=== PATIENT | female | born 1990 | race Two or more races ===

== ENCOUNTER 2023-06-10 14:24 | Emergency (ER) | payer OTHER, SELFPAY ==
--- NOTE | 2023-06-10 15:07 | ED.GENADULT ---
HPI - General Adult General Chief complaint: Back Pain/Injury Stated complaint: l arm and back inj at work Time Seen by Provider: 06/10/23 17:41 Source: patient and lpn rn hospice Mode of arrival: ambulatory Limitations: language barrier History of Present Illness HPI narrative: Patient is a 32 year old assigned female at with no reported medical history presenting to the emergency department today with left sided chest wall and shoulder pain. Patient states that she lifted a heavy box in an awkward way with her left arm and has been having pain in her left chest and shoulder ever since. Patient denies any dizziness, lightheadedness, abdominal pain, nausea, vomiting, fever, chills, blurry vision, double vision, loss of vision, chest pain, difficulty breathing, shortness of breath, back pain, night sweats, pain with urination, increased urinary frequency, increased urinary urgency, blood in her urine or stool, syncope or a near syncopal episode, bowel incontinence, bladder incontinence, bowel retention, bladder retention, or any other complaints at this time. Onset (ago): hour(s) Location: chest, left and upper extremity Severity: mild Severity scale (1-10): 3 Quality: aching Relieving factors: none Exacerbating factors: movement Associated symptoms: denies other symptoms Treatments prior to arrival: none Related Data Previous Rx's Medication Instructions Recorded cyclobenzaprine 5 mg tablet 5 mg PO TID PRN muscle spasm 7 06/10/23 days #21 tabs naproxen 500 mg tablet 500 mg PO BID 7 days #14 tabs 06/10/23 Allergies Allergy/AdvReac Type Severity Reaction Status Date / Time No Known Allergies Allergy Verified 06/10/23 15:08 Review of Systems Constitutional: Constitutional: Reports no additional constitutional complaints, Denies chills, Denies fever(s) and Denies night sweats Eyes: Eyes: Reports no additional eye complaints, Denies blurry vision, Denies change in vision, Denies diplopia, Denies eye discharge, Denies loss of vision and Denies eye pain ENT: Denies dizziness Cardiovascular: Cardiovascular: Reports no additional cardiovascular complaints, Denies chest pain, Denies lightheadedness, Denies Loss of Consciousness and Denies dyspnea Respiratory: Respiratory: Reports no additional respiratory complaints and Denies dyspnea Gastrointestinal: Gastrointestinal: Reports no additional gastrointestinal complaints, Denies abdominal pain, Denies melena, Denies hematochezia, Denies change in bowel habits and Denies change in stool character Genitourinary: Genitourinary: Denies hematuria, Denies urinary frequency, Denies dysuria, Denies urinary incontinence, Denies urinary hesitancy and Denies urinary urgency Musculoskeletal: Musculoskeletal: Reports no additional musculoskeletal complaints, Denies numbness and Denies tingling Comments: left chest wall pain and shoulder pain Neurologic: Denies dizziness, Denies loss of vision, Denies numbness and Denies tingling Psychiatric: Psychiatric: Reports no additional psychiatric complaints Endocrine: Endocrine: Reports no additional endocrine complaints Hematologic/Lymphatic: Hematologic/Lymphatic: Reports no additional hematologic/lymphatic complaints Allergic/Immunologic: Allergic/Immunologic: Reports no additional allergic/immunologic complaints PMFSH Past Medical History Attestation statement: The following information was validated with the patient. Source: old records reviewed and nursing notes reviewed Onset Date is defined in the Problem List Problems that require an onset date and time if occurred within 24 hrs of arrival to the ED Aortic Dissection and Rupture; Neurologic impairment; Cardiopulmonary Arrest; Endotracheal Intubation; Insertion or Replacement of Mechanical Circulatory Assist Device Physical Exam ED Vital Signs: Vital Signs - 24 hr 06/10/23 15:08 Temperature 97.3 F Pulse Rate 78 Respiratory Rate 18 Blood Pressure 123/92 H Pulse Oximetry 100 Oxygen Delivery Method Room Air BMI result Body Mass Index 35.1 Const General: cooperative, no acute distress, alert and awake Nutritional Appearance: well nourished Orientation/consciousness: patient oriented x3 Limitations: no limitations [facility] Head: Yes normal to inspection and Yes atraumatic Ears: hearing grossly normal bilaterally and external ears normal General nose exam: Normal external nose present, no nasal discharge noted and no epistaxis Face and sinus: Yes normal facial exam, No abrasion and No laceration Mouth: Normal oral and palatal mucosa present, no drooling and no muffled voice Eyes General: appearance normal, both eyes and all related structures Periorbital: periorbital findings normal Eyelids: Yes eyelids normal Conjunctivae: conjunctivae normal Pupils: Equal, round and reactive pupils present EOM: EOMs intact bilaterally Neck Neck: Yes normal visual inspection, Yes full ROM and Yes no lymphadenopathy Chest Chest palpation & inspection: normal inspection of the chest Resp Effort & Inspection: normal respiratory effort and able to speak in complete sentences GI Inspection: Yes normal to inspection Neuro General: patient oriented x3 and moves all extremities Cranial nerves: Yes Equal, round and reactive pupils present Cognition (Neuro): normal cognition Motor exam (neuro): 5/5 motor strength present throughout Sensory Exam: Normal double simultaneous stimulation for sensation Coordination: [id number] test normal Extrem Other: pain of the left chest with movement of the left shoulder General: Yes capillary refill normal Psych Appearance: grossly normal Mental Status: mental status grossly normal Affect: normal affect Attitude: cooperative Thought process: Normal thought process present Thought content: Normal thought content present Insight: Good insight present (Psych) Course Course Course Narrative: This is a rapid medical exam. Deferred additional HPI, ROS, PE to primary provider. 32 yo female with no known medical history, right hand dominant here with work injury. Patient reports she was lifting a heavy box and now has pain in her left shoulder/upper left back WIll obtain x-rays VSS Medical Decision Making Medical Decision Making MDM Narrative: Patient is a 32 year old assigned female at with no reported medical history presenting to the emergency department today with left chest wall and shoulder pain. Patient's physical exam showed left chest wall pain with left shoulder movement. This is concerning for a left pectoral injury. Patient's left shoulder x-ray showed no acute process. I explained my physical exam findings as well as all test results to the patient. I answered all questions asked by the patient. I stressed the importance of the patient taking her medication as prescribed. I stressed the importance of the patient following up with her primary care provider and an orthopedic provider. I stressed the importance of the patient returning to the emergency department immediately if her symptoms were to worsen or if she were to develop any dizziness, shortness of breath, difficulty breathing, chest pain, blurry vision, loss of vision, nausea, vomiting, abdominal pain, fever, chills, back pain, or any other complaints. Patient verbalized agreement and understanding with this treatment plan and discharge. Differential Diagnosis Differential Diagnoses: The differential diagnosis associated with the presentation includes Left pectoral injury Left shoulder injury Lifting injury Admission/Observation Consideration of admission/observation: Escalation of care including admission/observation considered Patient would have been admitted to the hospital had her work up had any findings where hospital admission was appropriate and her clinical presentation warranted hospital admission. Independent Interpretation I performed an independent interpretation of an: Plain X-Ray Interpretation: My interpretation is in agreement with the radiologist's impression of this imaging study. EXAMINATION: XR SHOULDER, LEFT CLINICAL INFORMATION: Unable to abduct left shoulder COMPARISON: None available. TECHNIQUE: AP external rotation, Grashey, scapular Y, and axillary views of the left shoulder. FINDINGS: The bones and soft tissues are normal. No fracture. Glenohumeral and acromioclavicular alignment is anatomic with normal joint space. No abnormal soft tissue calcifications. XR/XR shoulder LT min 2V IMPRESSION: Unremarkable left shoulder. Dictated By: Naun Gonsalves MD Signed By: Electronically signed by Naun Gonsalves MD 06/10/23 6493 Radiology Impression Discussion of test interpretation with radiology: I have reviewed the radiologist's reading. Prescription Management I considered prescription management with: Pain Medication (patient prescribed pain medication) Discharge Plan Discharge Clinical Impression: Strain of left pectoralis muscle Patient Disposition: Home, Self-Care Instructions: Muscle Strain (DC), Chest Wall Pain (ED) Additional Instructions: Follow up with your primary care provider and an orthopedic provider. Return to the emergency department immediately if your symptoms worsen or if you develop any dizziness, shortness of breath, difficulty breathing, chest pain, blurry vision, loss of vision, nausea, vomiting, abdominal pain, fever, chills, back pain, or any other complaints. Breonna un seguimiento con cantrell proveedor de atenci?n primaria y un proveedor ortop?dico. Regrese al departamento de emergencias inmediatamente si hai s?ntomas empeoran o si presenta mareos, dificultad para respirar, dificultad para respirar, dolor en el pecho, visi?n borrosa, p?rdida de la visi?n, n?useas, v?mitos, dolor abdominal, fiebre, escalofr?os, dolor de espalda o cualquier otras quejas. Prescriptions: New naproxen 500 mg tablet 500 mg PO BID 7 Days Qty: 14 0RF cyclobenzaprine 5 mg tablet 5 mg PO TID PRN (Reason: muscle spasm) 7 Days Qty: 21 0RF Referrals: [facility] [Provider Group] (Call to establish and follow up with a primary care provider. If you already have a primary care provider, please follow up with them. Llame para establecer y realizar un seguimiento con un proveedor de atenci?n primaria. Si ya tiene un proveedor de atenci?n primaria, breonna un seguimiento con ?l.) [facility] [place] Group] (Call to establish and follow up with a primary care provider. If you already have a primary care provider, please follow up with them. Llame para establecer y realizar un seguimiento con un proveedor de atenci?n primaria. Si ya tiene un proveedor de atenci?n primaria, breonna un seguimiento con ?l.) [facility] [place] [facility] [Provider Group] (Call to establish and follow up with a primary care provider. If you already have a primary care provider, please follow up with them. Llame para establecer y realizar un seguimiento con un proveedor de atenci?n primaria. Si ya tiene un proveedor de atenci?n primaria, breonna un seguimiento con ?l.) [facility] [place]Provider Group] (Call to establish and follow up with an orthopedic provider. Llame para establecer y realizar un seguimiento con un proveedor ortop?dico.) Stand Alone Forms: Work/School Release Print Language: Iraqi
[2023-06-10 15:08] VITALS: BP 123/92; PULSE 78; RESP 18; TEMP 36.3; O2SAT 100; BMI 35.1
[2023-06-10 17:54] VITALS: BP 118/71; PULSE 71; RESP 20; TEMP 36.6; O2SAT 97
== END 2023-06-10 18:28 | disposition home or self-care (01) ==
PROVIDERS: Emergency Provider Emergency Medicine
DX: S46.812A Strain of other muscles, fascia and tendons at shoulder and upper arm level, left arm, initial encounter (principal); X50.0XXA Overexertion from strenuous movement or load, initial encounter; Y93.89 Activity, other specified; Y92.812 Truck as the place of occurrence of the external cause; Y99.0 Civilian activity done for income or pay
CPT/HCPCS: 73030; 96372; 99283; 99284; J1885

== ENCOUNTER 2025-01-15 09:19 | Emergency (ER) | payer OTHER, SELFPAY ==
--- NOTE | 2025-01-15 | ECG_ITS ---
Test Reason : CP/BACK PAIN Blood Pressure : */* mmHG Vent. Rate : 67 BPM Atrial Rate : 67 BPM P-R Int : 114 ms QRS Dur : 80 ms QT Int : 396 ms P-R-T Axes : 1 -3 5 degrees QTcB Int : 418 ms Normal sinus rhythm Minimal voltage criteria for LVH, may be normal variant ( R in aVL ) Borderline ECG No previous ECGs available Referred By: Maegan Cobb Electronically Signed By: Elmer Valenzuela
--- NOTE | ~2025-01-15 | XR_ITS ---
EXAMINATION: XR SHOULDER, RIGHT CLINICAL INFORMATION: R shoulder pain, heavy lifting COMPARISON: None available. TECHNIQUE: AP external rotation, Grashey, scapular Y, and axillary views of the right shoulder. FINDINGS: No acute cortical disruption or malalignment. No lytic or blastic lesions. No calcifications in the soft tissues. XR/XR shoulder RT min 2V IMPRESSION: No acute fracture or dislocation. Negative exam. Electronically signed by: Vipin Olson MD 01/15/2025 10:59 AM EDT
[2025-01-15 09:39] VITALS: BP 149/81; PULSE 89; RESP 16; TEMP 36.6; O2SAT 99; BMI 42.4
--- NOTE | 2025-01-15 09:45 | MHC.EDTECH ---
this tech went to obtain EKG and labs from pt, pt observed to be pacing and in tears due to pain, requesting pain meds and refusing ekg at this time, NAYA Guerin aware.
--- NOTE | 2025-01-15 10:11 | ED_ITS ---
HPI - Extremity Problem General Chief complaint: Extremity Injury, Upper Stated complaint: R shoulder/ back pain, Hurt @ work 2 days ago 730p Time Seen by Provider: 01/15/25 09:35 Source: patient and RN notes reviewed Mode of arrival: ambulatory Limitations: no limitations History of Present Illness ED Provider: Jordyn Issa PA-C HPI Narrative: 34-year-old female without significant medical history presents to the ED due to who days of right shoulder pain. 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 Patient states Monday evening when she got home from work she noticed right shoulder pain that starts in the anterior shoulder and radiates to the back of her shoulder, it is associated with intermittent nausea when the pain is at its worst. Patient states movement and lifting makes the pain worse. Patient reports yesterday morning when she woke up she had an increased pain of the right shoulder. She denies any fall, trauma, injury. Patient states she has not taken any pisr-jgd-wycpndy medication for pain control. Denies chest pain, shortness of breath, abdominal pain, vomiting Related Data Previous Rx's ?Medication ?Instructions ?Recorded cyclobenzaprine 5 mg tablet 5 mg PO TID PRN muscle spa sm 7 06/10/23 days #21 tabs naproxen 500 mg tablet 500 mg PO BID 7 days #14 tab s 06/10/23 cyclobenzaprine 5 mg tablet 5 mg PO TID PRN muscle spa sm 5 01/15/25 days #15 tabs ketorolac 10 mg tablet 10 mg PO Q8H PRN pain 3 days #9 01/15/25 tabs lidocaine 4 % topical patch 1 patch topical DAILY PRN pain #30 01/15/25 (AsperFlex (lidocaine)) ea prednisone 20 mg tablet 20 mg PO BID #10 tabs Allergies Allergy/AdvReac Type Severity Reaction Status Date / Time No Known Allergies Allergy Verified 01/15/25 09:40 Review of Systems 2 Review of Systems: CONST: Negative for fever, body aches and chills. HENT: Negative for neck pain/stiffness, headache, congestion, sore throat, swelling. EYES: Negative for discharge/pain or vision changes. RESP: Negative for cough/hemoptysis and shortness of breath. CV: Negative chest pain, difficulty breathing, palpitations. ABD: Negative pain, nausea, vomiting. : Negative increase frequency, dysuria, blood in urine or stool. MUSC: Negative for muscle aches, edema. POS R shoulder pain, radiating to posterior shoulder SKIN: Negative rash, lesions/sores. NEURO: Negative headache, dizziness, weakness. Yes all other systems are reviewed and are negative [facility] Past Medical History Attestation statement: The following information was validated with the patient. Source: old records reviewed and nursing notes reviewed Social History Social History Advance Directives: No Advance Directives Information Provided: Yes Do you have a plan to hurt others: No Plan Physical Exam 2 Vital Signs: Vital Signs: Last Vital Signs Temp 97.9 F 01/15/25 09:39 Pulse 89 01/15/25 09:39 Resp 16 01/15/25 09:39 BP 149/81 H 01/15/25 09:39 Pulse Ox 99 01/15/25 09:39 O2 Del Method Room Air 01/15/25 09:39 BMI result Body Mass Index 42.4 GENERAL APPEARANCE: ?AxOx4, generally well-appearing, no acute distress. HEENT: ?NC, AT. MMM. EOMI, clear conjunctiva, oropharynx clear. NECK: ?Supple without lymphadenopathy.? No stiffness or restricted ROM. HEART:? Normal rate and regular rhythm, normal S1/S2, no m/r/g LUNGS:? CTAB, moving air well. No crackles or wheezes are heard. ABDOMEN: ?Soft, nontender, nondistended with good bowel sounds heard. BACK: No CVAT, no obvious deformity. TTP of right side thoracic paraspinal muscles, no midline spinal tenderness, no bony step-offs, no overlying skin changes EXTREMITIES: ?Without cyanosis, clubbing or edema. Normal visual inspection of right shoulder, no overlying skin changes, TTP of anterior shoulder, TTP of posterior scapula, SILT, reduced ROM in flexion and extension due to pain, patient holding arm in adduction close to body due to pain, radial pulses 2+ bilaterally, appropriate capillary refill time. NEUROLOGICAL: ?Grossly nonfocal. Alert and oriented, moving all 4 extremities. Observed to ambulate with normal gait. Skin: ?Warm and dry without any rash. Medications Administered Discontinued Medications Generic Name Dose Route Start Last Admin Trade Name Freq PRN Reason Stop Dose Admin Acetaminophen 975 mg 01/15/25 10:11 01/15/25 10:48 Acetaminophen 325 Mg Tablet PO 01/15/25 10:12 975 mg ONCE ONE Administration Cyclobenzaprine HCl 5 mg 01/15/25 10:11 01/15/25 10:48 Cyclobenzaprine Hcl 5 Mg Tablet PO 01/15/25 10:12 5 mg ONCE ONE Administration Ketorolac Tromethamine 15 mg 01/15/25 10:11 01/15/25 10:48 Ketorolac Tromethamine 15 Mg/Ml Vial IM 01/15/25 10:12 15 mg ONCE ONE Administration Prednisone 40 mg 01/15/25 10:11 01/15/25 10:48 Prednisone 20 Mg Tablet PO 01/15/25 10:12 40 mg ONCE ONE Administration Medical Decision Making Medical Decision Making MDM Narrative: 34-year-old female without significant medical history presents to the ED due to who days of right shoulder pain. 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 Patient states Monday evening when she got home from work she noticed right shoulder pain that starts in the anterior shoulder and radiates to the back of her shoulder, it is associated with intermittent nausea when the pain is at its worst. Patient states movement and lifting makes the pain worse. Patient reports yesterday morning when she woke up she had an increased pain of the right shoulder. She denies any fall, trauma, injury. Patient states she has not taken any obla-lmf-rhcrjgg medication for pain control. VS-BP of 149/81, pulse rate 89 beats per minute, respiratory rate of 16, afebrile with oral temp of 97.9, O2 saturation 99 percent on room air. On physical exam Normal visual inspection of right shoulder, no overlying skin changes, TTP of anterior shoulder, TTP of posterior scapula, SILT, reduced ROM in flexion and extension due to pain, patient holding arm in adduction close to body due to pain, radial pulses 2+ bilaterally, appropriate capillary refill time. TTP of right side thoracic paraspinal muscles, no midline spinal tenderness, no bony step-offs, no overlying skin changes. Abdomen soft, nontender, nondistended, no rigidity, negative Jewell's sign, no rebound tenderness EKG reveals normal sinus rhythm, no ST-elevation/depression, T-wave abnormality indicative of ischemia, initial troponin undetectable at <2.7, patient without chest pain- ACS less likely Labs with mild leukocytosis of 12.5, H and H stable, no evidence of electrolyte abnormality, patient without abdominal pain, no suprapubic tenderness, no urinary symptoms, patient without cough, no chest pain, afebrile- I believe the mild leukocytosis could be caused by increased pain. no significant increase in AST/ALT, total bilirubin, Jewell's sign negative on physical exam, shoulder pain not affected by meals- less likely billiary pathology Lipase WNL, no epigastric tenderness on physical exam- pancreatitis less likely R shoulder XR negative for dislocation/fracture Course 11:40- patient states pain has improved after being medicated with 40 mg prednisone, 15mg IM Toradol, 5mg cyclobenzaprine, 975 milligrams p.o. Tylenol. At this time I believe patient experiencing strain, possible rotator cuff injury/inflammation. We will discharge patient with 5 day course of 40 mg prednisone, 5 day course of 5 mg cyclobenzaprine, 3 days of 15 mg Toradol for shoulder strain. I will refer to orthopedics for further evaluation of rotator cuff pathology. Patient is in agreement with the plan Differential Diagnosis Differential Diagnoses: The differential diagnosis associated with the presentation includes ACS Shoulder fracture Shoulder dislocation Biliary pathology pancreatitis Rotator cuff pathology Admission/Observation Consideration of admission/observation: Escalation of care including admission/observation considered Lab Data MDM Lab Attestation statement: I reviewed the patient's lab results. 01/15/25 10:45 01/15/25 10:45 Labs: Lab Results 01/15/25 Range/Units 10:45 WBC 12.5 H (4.8-10.8) X10*3/uL RBC 4.77 (4.20-5.50) X10*6/uL Hgb 14.6 (12.0-16.0) g/dl Hct 42.5 (37.0-47.0) % MCV 89.1 (80.0-98.0) fL MCH 30.6 (27.0-33.0) pg MCHC 34.4 (31.0-35.0) g/dl RDW 13.0 (11.0-16.0) % Plt Count 314 (160-400) X10*3/uL MPV 9.9 (9.4-12.3) fL Immature Gran % (Auto) 0.3 (0.0-0.4) % Neut % (Auto) 70.1 (45-73) % Lymph % (Auto) 24.1 (20-40) % Rock % (Auto) 4.2 (2-11) % Eos % (Auto) 0.8 (0-4) % Baso % (Auto) 0.5 (0-2) % Lymph # (Auto) 3.0 (1.2-4.9) X10*3/uL Rock # (Auto) 0.5 (0.1-1.2) X10*3/uL Eos # (Auto) 0.1 (0.0-0.4) X10*3/uL Baso # (Auto) 0.1 (0.0-0.2) X10*3/uL Abs Immat Gran (auto) 0.04 H (0.00-0.03) X10*3/uL Absolute Neuts (auto) 8.8 H (2.0-8.3) x10*3/uL Absolute Nucleated RBC 0.000 (0.0-0.012) X10*3/uL Nucleated RBC % (auto) 0.0 (0.0-0.2) /100WBC Sodium 139 (135-145) mmol/L Potassium 4.3 (3.3-5.1) mmol/L Chloride 109 H (96-108) mmol/L Carbon Dioxide 24 (22-29) mmol/L Anion Gap 10 L (12-20) BUN 10 (9-16) mg/dL Creatinine 0.58 (0.5-1.4) mg/dL Estim Creat Clear Calc 136.8 Estimated GFR > 60 Random Glucose 98 (60-115) mg/dL Calcium 8.8 (8.4-10.2) mg/dL Magnesium 2.0 (1.6-2.6) mg/dL Total Bilirubin 0.3 (0.0-1.0) mg/dL AST 28 (5-31) U/L ALT 33 H (0-31) U/L Alkaline Phosphatase 102 (39-117) U/L Troponin I High Sens < 2.7 (<3.5-17.0) ng/L Total Protein 7.5 (6.5-8.0) g/dL Albumin 4.5 (3.5-5.0) g/dL Independent Interpretation I performed an independent interpretation of an: EKG Interpretation: I independently interpreted the EKG which shows normal sinus rhythm, no ST- elevation/depression, T-wave abnormality Vent. Rate : 67 BPM Atrial Rate : 67 BPM P-R Int : 114 ms QRS Dur : 80 ms QT Int : 396 ms P-R-T Axes : 1 -3 5 degrees QTcB Int : 418 ms Normal sinus rhythm Minimal voltage criteria for LVH, may be normal variant ( R in aVL ) Borderline ECG No previous ECGs available I personally interpreted the right shoulder x-ray which does not reveal any fracture, dislocation, degenerative changes, I agree with the radiologist's interpretation Radiology Impression Discussion of test interpretation with radiology: I have reviewed the radiologist's reading. Radiologist Impression: Right shoulder XR FINDINGS: No acute cortical disruption or malalignment. No lytic or blastic lesions. No calcifications in the soft tissues. XR/XR shoulder RT min 2V IMPRESSION: No acute fracture or dislocation. Negative exam. Electronically signed by: Vipin Olson MD 01/15/2025 10:59 AM EDT RP Dictated By: Vipin Cornelius MD Signed By: <Electronically signed by Vipin Mclean MD in OV> 01/15/25 1059 External Record Review External record reviewed: Inpatient record, Office record and Outpatient record Discharge Plan Discharge Clinical Impression: Muscle strain of right shoulder Patient Disposition: Home, Self-Care Instructions: Muscle Strain (DC), Rotator Cuff Injury (ED), Rotator Cuff Injury Exercises (DC) Additional Instructions: You were evaluated in the ED today due to right shoulder pain. Your labs revealed a mild elevation in your white blood cell count- this is likely due to pain. Your EKG showed normal sinus rhythm without any emergent processes, your initial troponin which is an enzyme the heart gives off under stress or damage was undetectable. The x-ray of your right shoulder was negative for any fracture, dislocation, or degenerative changes. Your physical exam showed some tenderness of the anterior and posterior shoulder and around the region known as the rotator cuff. While in the department you were medicated with 975 mg of Tylenol, 40 mg prednisone, 5 mg of Flexeril, and 15 milligrams of an intramuscular injection of Toradol which had good effect of your pain. You will be prescribed a 5 day course of prednisone which is a steroid for anti inflammation, 5 day course of Flexeril which is a muscle relaxer, lidocaine patches, and 3 days of Toradol which is a strong NSAID to manage inflammation and pain. I placed a referral to the orthopedic doctors for further evaluation of your right shoulder pain. You need to call their office, they will not call you. While taking Toradol, do not take any other NSAID medication, including your naproxen. While using lidocaine patches please do not place any ice, or heat over the patches as this can burn your skin. Please return to the emergency department if you experience fevers over 100.4 degrees, worsening pain of your right shoulder, inability to move your right arm, decreased sensation of your right arm, or any other new/worsening/concerning symptoms Prescriptions: New cyclobenzaprine 5 mg tablet 5 mg PO TID PRN (Reason: muscle spasm) 5 Days Qty: 15 0RF prednisone 20 mg tablet 20 mg PO BID Qty: 10 0RF lidocaine [AsperFlex (lidocaine)] 4 % adhesive patch,medicated 1 patch topical DAILY PRN (Reason: pain) Qty: 30 0RF ketorolac 10 mg tablet 10 mg PO Q8H PRN (Reason: pain) 3 Days Qty: 9 0RF Rx Instructions: maximum total duration of 5 days from all oral, intranasal, or parenteral formulations PT given 15 mg IM toradol for pain management No Action naproxen 500 mg tablet 500 mg PO BID 7 Days Qty: 14 0RF cyclobenzaprine 5 mg tablet 5 mg PO TID PRN (Reason: muscle spasm) 7 Days Qty: 21 0RF Referrals: [facility] [place] Orthopedic Surgeons [Provider Group] Print Language: Romansh
[2025-01-15 11:00] LABS: MANUAL DIFF FLAG NO
[2025-01-15 11:04] LABS: Hematocrit 42.5 % (37.0-47.0); Hemoglobin 14.6 g/dl (12.0-16.0); Imm Gran Abs Auto 0.04 X10*3/uL (0.00-0.03); Imm Gran Pct Auto 0.3 % (0.0-0.4); Lymphocytes Absolute Auto 3.0 X10*3/uL (1.2-4.9); Mean Corpuscular HGB Conc 34.4 g/dl (31.0-35.0); Mean Corpuscular Hemoglobin 30.6 pg (27.0-33.0); Mean Corpuscular Volume 89.1 fL (80.0-98.0); NRBC Abs Auto 0.000 X10*3/uL (0.0-0.012); NRBC Pct Auto 0.0 /100WBC (0.0-0.2); Platelet Count 314 X10*3/uL (160-400); Red Blood Count 4.77 X10*6/uL (4.20-5.50); White Blood Count 12.5 X10*3/uL (4.8-10.8)
[2025-01-15 11:18] LABS: Alanine Aminotransferase 33 U/L (0-31); Albumin Level 4.5 g/dL (3.5-5.0); Alkaline Phosphatase 102 U/L (39-117); Anion Gap 10 (12-20); Aspartate Amino Transferase 28 U/L (5-31); Blood Urea Nitrogen 10 mg/dL (9-16); Calcium 8.8 mg/dL (8.4-10.2); Carbon Dioxide 24 mmol/L (22-29); Chloride 109 mmol/L (96-108); Creatinine Clr Calc Pharmacy 136.8; Estimated Glomerular Filt Rate > 60; Magnesium 2.0 mg/dL (1.6-2.6); Potassium 4.3 mmol/L (3.3-5.1); Sodium 139 mmol/L (135-145); Total Protein 7.5 g/dL (6.5-8.0)
[2025-01-15 11:29] LABS: Troponin-I High Sensitivity < 2.7 ng/L (<3.5-17.0)
--- OUTSIDE RECORDS SUMMARY | 2025-01-15 11:29 | XMS_ITS | Clinical Summary ---
Author Organization [facility] Address [address] [place] [address] Care Team Providers Care Machine Stuffer Automatic Name Role Phone Palmira Goode PA-C Primary Care Provider [phone] Source Comments PLEASE NOTE, if this patient is a minor, it may be UNLAWFUL to discuss sensitive information that is contained in these records (such as FAMILY PLANNING, MENTAL HEALTH or SUBSTANCE ABUSE) with the minor patient's parent or other person without the patient's specific authorization.[facility] Allergies No known active allergies Active Problems Problem Noted Date Diagnosed Date Amenorrhea 07/14/2017 Immunizations Immunization Administration Dates Next Due Flu, Preservative Free 07/14/2017 Family History Medical History Relation Name Comments Diabetes Father Hypertension Father Hypertension Mother Relation Name Status Comments Father Mother Social History Tobacco Use Types Packs/Day Years Used Date Smoking Tobacco: Every Day Cigarettes Smokeless Tobacco: Never Tobacco Cessation:Ready to Q uit: No; Counseling Given: Yes Comments:4 cigarettes Alcohol Use Standard Drinks/Week Comments No 0 (1 standard drink = 0.6 oz pur e alcohol) Social Connections Answer Date Recorded Connectedness 0 02/23/2024 Financial Resource Strain Answer Date R ecorded Financial Resource Strain 0 2023 Stress Answer Date Recorded Stress 0 08/21/2023 Physical Activity Answer Date Recorded Physical Activity 0 08/21/2023 Food Insecurity Answer Date Recorded Food 0 02/29/2024 Transportation Needs Answer Date Record ed Transportation 0 08/21/2023 Housing Stability Answer Date Recorded Housing 0 08/21/2023 Safety and Environment Answer Date Иван rded Safety 0 08/21/2023 Utilities Answer Date Recorded Utilities 0 08/21/2023 Employment Answer Date Recorded Stress 0 02/23/2024 Comments No Sex and Gender Information Value Date Recorded Sex Assigned at Female 07/14/2017 11:28 AM PST Legal Sex Female 9:19 AM PST Gender Identity Female 07/14/2017 11:28 AM PST Sexual Orientation Straight 07/14/2017 11 :28 AM PST Last Filed Vital Signs Vital Sign Reading Time Taken Comments Blood Pressure 120/70 07/14/2017 2:30 PM EST Pulse 80 07/14/2017 2:30 PM EST Temperature 36.8 C (98.3 F) 07/14/2017 2:30 PM EST Respiratory Rate 16 07/14/2017 2:30 PM EST Oxygen Saturation - - Inhaled Oxygen Concentration - - Weight 102.1 kg (225 lb) 07/14/2017 2:30 PM EST Height - - Body Mass Index - - Plan of Treatment Health Maintenance Due Date Last Done Comments Anxiety Screening 1989 HPV Screening 1989 Hepatitis C Screening 1989 Pap + HPV 1989 Tobacco Screening 1989 Relationship Safety Screening/Counseling 2004 Imm-DTaP/Tdap/Td (1 - Tdap) 2008 Imm-Hepatitis B (1 of 3 - 19 + 3-dose series) 2008 Imm-Pneumococcal (1 of 2 - PCV) 2008 Cervical Cancer Screening 2010 Pap Smear 2010 Annual Wellness (Adult): Ind icated (All Coverage) 07/14/2018 07/14/2017 Tobacco Cessation Counseling (#1) 07/14/2018 Hypertension Screening (#1) 07/13/2020 Diabetes Screening 07/26/2020 07/26/2017, 07/26/2017 [id number] ( season) 02/04/202404/08/2 021, 03/18/2021 Alcohol and Drug Screen 06/05/2024 07/14/2017 Depression Annual Screen 06/05/2024 07/14/2017 Imm-Influenza (#1) 2025 03/18/2021, 07/14/2017 HIV Screening Completed 07/26/2017 Cervical Ablation/Cold-Knife Conization Discontinued Cervical Cryotherapy Discontinued Colposcopy Discontinued Endometrial Biopsy Discontinued Excision/Leep Discontinued HPV Genotyping Discontinued Vaginal Pap Discontinued Vulvoscopy Discontinued Procedures Procedure Name Priority Date/Time Associated Diagnosis Comments ANTIBODY HIV-1&HIV-2 SINGLE RESULT Routine 07/26/2017 10:15 AM EST Routine general medical examination at a health care facility COMPREHENSIVE METABOLIC PANEL Routine 07/26/2017 10:15 AM EST Routine general medical examination at a health care facility from Last 3 Months or Most Recently Relevant to Health Maintenance Results * HIV-1 & HIV-2 ANTIBODIES (07/26/2017 10:15 AM EST) Pathologist [facility] [place] HIV 1 AND 2 ANTIBODY SCREEN NEGATIVE NEGATIVE [facility] Comment: This assay is a 4th generation assay allowing for earlier detection of HIV infection by detecting the presence of the HIV-1 p24 antigen as well as the traditional antibodies to HIV type 1 (including group O) and type 2. Use of a 4th generation assay is the current CDC recommendation for HIV screening. Blood specimen (specimen) Blood / Unknown 07/26/2017 10:15 AM EST 07/26/2017 10:31 AM EST Narrative [facility] - 07/26/2017 1:07 PM EST [employer] [address] [place] [address] PT ID [id number] ORD# [id number] Carey Villegas PA-C LAB - [place]OD [place] [address], * (ABNORMAL) COMPRE METAB PANEL (07/26/2017 10:15 AM EST) Pathologist [facility] [place] GLUCOSE 90 70 - 100 mg/dL [facility] Comment:Reference range appl icable to fasting specimens only BUN 17 5 - 25 mg/dL [facility] CREAT 0.57 0.5 - 1.1 mg/dL [facility] GLOMERULAR FILTRATION RATE > 60 [facility] Comment: If patient is -Montserratian, multiply result by 1.21 Chronic Kidney Disease: < 60 ml/min/1.73 square meters Kidney Failure: < 15 ml/min/1.73 square meters SODIUM 139 133 - 145 mmol/L [facility] POTASSIUM 4.5 3.5 - 5.5 mmol/L [facility] CHLORIDE 107 96 - 110 mmol/L [facility] CO2 23 21 - 32 mmol/L [facility] ANION GAP 9 3 - 11 [facility] CALCIUM 8.9 8.5 - 10.5 mg/dL [facility] ALBUMIN 3.7 3.2 - 5.0 G/dL [facility] SGPT 45 10 - 60 U/L [facility] TOTAL PROTEIN 7.4 6.0 - 8.0 G/dL [facility] BILI, TOTAL 0.3 0.0 - 1.4 mg/dL [facility] SGOT 21 10 - 42 U/L [facility] ALK PHOS 125(H) 42 - 121 U/L [facility] Blood specimen (specimen) Blood / Unknown 07/26/2017 10:15 AM EST 07/26/2017 10:31 AM EST Narrative [facility] - 07/26/2017 12:20 PM EST [facility] [employer] [address] [place] [address] PT ID [id number] ORD# [id number] Carey Villegas PA-C LAB - BLOOD DRAW Doreen R esult - Final [facility] [address] [place] [address], from Last 3 Months or Most Recently Relevant to Health Maintenance Insurance [employer] Care Teams Machine Stuffer Automatic Relationship Specialty Start Date End Date Palmira Goode PA-C [address] [place] [address] PCP - General Internal Medicine 02/04/22
--- OUTSIDE RECORDS SUMMARY | 2025-01-15 11:29 | XMS_ITS | Clinical Summary ---
Author Organization [facility] Address [address] [place] [id number] Care Team Providers Care Senior Interaction Designer Name Role Phone Haley Crump MD Primary Care Provider Surgical History Surgery Date Site/Laterality Comments SECTION PROCEDURE: HISTORICAL ; COMMENT: 2 TUBAL LIGATION 2014 PROCEDURE: HISTORICAL TUBAL LIGATION Medical History Medical History Date Comments Secondary amenorrhea 2014 DX:Secondar y amenorrhea; COMMENT: Evaluated in [place] in 02/2015 and was placed on Provera but it didnt work Family History Medical History Relation Name Comments Diabetes Father insulin Hypertension Father Depression Mother Hypertension Mother Breast cancer Neg Hx Ovarian cancer Neg Hx Relation Name Status Comments Father Alive Mother Alive Social History Tobacco Use Types Packs/Day Years Used Date Smoking Tobacco: Every Day Cigarettes Smokeless Tobacco: Never Alcohol Use Standard Drinks/Week Comments Yes 0 (1 standard drink = 0.6 oz pur e alcohol) Comments Unknown Sex and Gender Information Value Date Recorded Sex Assigned at Not on file Legal Sex Female 4:38 AM EST Gender Identity Not on file Sexual Orientation Not on file Obstetrics History Plan of Treatment Health Maintenance Due Date Last Done Comments DTaP,Tdap,and Td Vaccines (1 - Tdap) 2008 Hepatitis B Vaccines (1 of 3 - 19+ 3-dose series) 2008 Pneumococcal Vaccine: Pediat rics (0 to 5 Years) and At-Risk Patients (6 to 49 Years) (1 of 2 - PCV) 2008 Cholesterol Screening (Lipid Panel) 05/08/2022 HIV Screening 05/08/2022 Hepatitis C Screening 05/08/2022 Social Influencers of Health Screening 05/08/2022 Cervical Cancer Screening: P ap Smear 01/28/2024 01/27/2021 COVID-19 Vaccine ( - 2023-2 5 season) 2024 Depression Screening 06/05/2024 Influenza Vaccine (#1) 2025 HIB Vaccines Aged Out No longer eligi ble based on patient's age to complete this topic HPV Vaccines Aged Out No longer eligi ble based on patient's age to complete this topic Hepatitis A Vaccines Aged Out No long er eligible based on patient's age to complete this topic IPV Vaccines Aged Out No longer eligi ble based on patient's age to complete this topic MMR Vaccines Aged Out No longer eligi ble based on patient's age to complete this topic Meningococcal ACWY Vaccine Aged Out N o longer eligible based on patient's age to complete this topic Meningococcal B Vaccine Aged Out No l onger eligible based on patient's age to complete this topic RSV Immunization Patients Un camryn 20 months Aged Out No longer eligible b ased on patient's age to complete this topic Varicella Vaccines Aged Out No longer eligible based on patient's age to complete this topic Procedures Procedure Name Priority Date/Time Associated Diagnosis Comments PAP SMEAR Routine 01/27/2021 from Last 3 Months or Most Recently Relevant to Health Maintenance Results * Pap smear (01/27/2021) 01/27/2021 Narrative HISTORICAL TESTING LAB RESULTING AGENCY - 02/09/2021 7:45 AM EDT [id number] THINPREP PAP, IMAGED: NEGATIVE FOR SQUAMOUS INTRAEPITHELIAL LESION AND MALIGNANCY . ELLIOT SALMON(ASCP) (CASE ELECTRONICALLY SIGNED 02 08 2021) RESULT OF APTIMA HIGH RISK HPV ASSAY: HIGH RISK HPV: NEGATIVE (SEROTYPES 16,18,31,33,35,39,45,51,52,56,58,59,66,68) COMPLETED ON 2021-02-01 ADEQUACY: SATISFACTORY ENDOCERVICAL/TRANSFORMATION ZONE COMPONENT PRESENT. SOURCE: THINPREP PAP HPV ANY DX: REFLEX 16 AND 18, CERVICAL, IMAGED CLINICAL INFORMATION: HPV ANY DIAGNOSIS. HORMONES, PAP HX UNKNOWN, LMP 01/14/21 [Z12.4, Z01.419] Eva Imani [facility] LAB CYTOLOGY ORDERABLES Final Result HISTORICAL TESTING LAB RESULTING AGENCY from Last 3 Months or Most Recently Relevant to Health Maintenance Care Teams Senior Interaction Designer Relationship Specialty Start Date End Date Haley Crump MD [address] [place] [address] Dominic [place] PCP - General Internal Medicine 01/26/21
[2025-01-15 11:38] LABS: Lipase 22 U/L (8-78)
[2025-01-15] MEDS: Lidocaine 4 % Patch ADH..PATCH 1 PATCH TRANSDERMA (12:19)
[2025-01-15 12:20] VITALS: BP 121/75; PULSE 59; RESP 16; TEMP 36.8; O2SAT 99
[2025-01-15 12:28] VITALS: BP 121/75; PULSE 59; RESP 16; TEMP 36.8; O2SAT 99
== END 2025-01-15 12:29 | disposition home or self-care (01) ==
PROVIDERS: Emergency Provider Emergency Medicine
DX: S46.911A Strain of unspecified muscle, fascia and tendon at shoulder and upper arm level, right arm, initial encounter (principal); M25.511 Pain in right shoulder; M54.50 Low back pain, unspecified; R07.89 Other chest pain; X50.0XXA Overexertion from strenuous movement or load, initial encounter; X50.1XXA Overexertion from prolonged static or awkward postures, initial encounter; Y93.9 Activity, unspecified; Y92.9 Unspecified place or not applicable; Y99.0 Civilian activity done for income or pay
CPT/HCPCS: 36415; 73030; 80053; 83690; 83735; 84484; 85025; 93005; 96372; 99284; 99285; J1885

== ENCOUNTER → 2025-01-15 10:09 | Outpatient (BNV) | payer OTHER, SELFPAY | PROVIDERS: Emergency Provider Emergency Medicine; Visit Provider Internal Medicine Cardiovascular Disease | DX: R07.9 Chest pain, unspecified (principal); M54.9 Dorsalgia, unspecified | CPT/HCPCS: 93010 ==

== ENCOUNTER → 2025-01-15 10:16 | Outpatient (BNV) | payer OTHER, SELFPAY | PROVIDERS: Emergency Provider Emergency Medicine; Visit Provider Radiology Diagnostic Radiology | DX: M25.511 Pain in right shoulder (principal) | CPT/HCPCS: 73030 ==

== ENCOUNTER 2025-02-06 12:59 | Outpatient (AMB) | payer OTHER, SELFPAY ==
[2025-02-06 13:01] VITALS: BMI 42.4
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
--- OUTSIDE RECORDS SUMMARY | 2025-02-06 14:15 | XMS_ITS | Clinical Summary ---
Author Organization [facility] Address [address] [place] [id number] Care Team Providers Care Gift Manager Name Role Phone Haley Crump MD Primary Care Provider Surgical History Surgery Date Site/Laterality Comments SECTION PROCEDURE: HISTORICAL ; COMMENT: 2 TUBAL LIGATION 2014 PROCEDURE: HISTORICAL TUBAL LIGATION Medical History Medical History Date Comments Secondary amenorrhea 2014 DX:Secondar y amenorrhea; COMMENT: Evaluated in [place] in 02/2015 and was placed on Provera [...] Cancer Screening: P ap Smear 01/28/2024 01/27/2021 Depression Screening 06/05/2024 COVID-19 Vaccine (1 - 2023-2 5 season) 2025 Influenza Vaccine (#1) 2025 HIB Vaccines Aged [...] RESULTING AGENCY - 02/09/2021 7:45 AM EDT [id number] THINPREP PAP, IMAGED: NEGATIVE FOR SQUAMOUS INTRAEPITHELIAL [...] UNKNOWN, LMP 01/14/21 [Z12.4, Z01.419] Eva Imani [facility] CYTOLOGY ORDERABLES Final Result HISTORICAL TESTING LAB RESULTING AGENCY from Last 3 Months or Most Recently Relevant to Health Maintenance Care Teams Gift Manager Relationship Specialty Start Date End Date Haley Crump MD [address] [place] [address] Dominic [place] PCP - General Internal Medicine 01/26/21
== END 2025-02-06 14:45 | disposition home or self-care (01) ==
PROVIDERS: Visit Provider Physician Assistant
DX: M75.81 Other shoulder lesions, right shoulder (principal)
CPT/HCPCS: 20610; 99204

== ENCOUNTER → 2025-02-06 12:59 | Outpatient (BNVA) | payer OTHER, SELFPAY | PROVIDERS: Visit Provider Physician Assistant | DX: M75.81 Other shoulder lesions, right shoulder (principal) | CPT/HCPCS: 20610; 99202; J0665; J1100; J2003 ==

== ENCOUNTER 2025-03-08 16:26 | Emergency (ER) | payer OTHER, SELFPAY ==
--- NOTE | ~2025-03-08 | XR_ITS ---
CLINICAL HISTORY: pain 2 view chest x-ray Comparison: None provided Findings: The lungs are clear. Normal size heart. No acute fracture. IMPRESSION: 1. No acute findings. This document has been electronically signed by: Duke Orellana MD on 03/08/2025 18:38:35
[2025-03-08 16:37] VITALS: BP 155/70; PULSE 86; RESP 20; TEMP 36.5; O2SAT 100; BMI 39.6
--- NOTE | 2025-03-08 16:39 | ED_ITS ---
HPI - General Adult General Chief complaint: Extremity Injury, Upper Stated complaint: right shoulder/arm injury? Time Seen by Provider: 03/08/25 16:42 Source: patient and RN notes reviewed Mode of arrival: ambulatory Limitations: no limitations History of Present Illness HPI narrative: 34-year-old female who denies significant past medical history, presents for evaluation of right-sided chest pain. Patient states she works for [employer] and was in the process of lifting 6 heavy boxes and after the 3rd box, she felt pain to the right shoulder and right upper part of her chest. She felt a pulling and tightness sensation. She does have a history of right shoulder tendonitis in the past. It is worse with palpation and movement. She denies any direct trauma. She has been otherwise feeling well. She did not take any medication for this. 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 Related Data Previous Rx's ?Medication ?Instructions ?Recorded methocarbamol 750 mg tablet 750 mg PO TID PRN muscle s pasm #20 03/08/25 tabs naproxen 500 mg tablet 500 mg PO BID PRN pain 7 day s #14 03/08/25 tabs Allergies Allergy/AdvReac Type Severity Reaction Status Date / Time No Known Allergies Allergy Verified 03/08/25 16:41 Review of Systems Review of Systems: Yes all other systems are reviewed and are negative Cardiovascular: Cardiovascular: Reports chest pain Respiratory: Respiratory: Denies cough PMFSH Past Medical History Surgical History (Updated 02/06/25 @ 13:07 by ANSHU Reese) Hx of section Social History Social History (Updated 02/06/25 @ 13:08 by ANSHU Reese) Patient Tobacco Use Status: Current everyday Tobacco user Advance Directives: No Advance Directives Information Provided: No Do you have a plan to hurt others: No Plan Current occupation: [employer], right hand dominant Physical Exam ED Vital Signs: Vital Signs - 24 hr 03/08/25 16:37 03/08/25 18:00 Temperature 97.7 F 97.7 F Pulse Rate 86 86 Respiratory Rate 20 20 Blood Pressure 155/70 H 155/70 H Pulse Oximetry 100 100 Oxygen Delivery Method Room Air Room Air BMI result Body Mass Index 39.6 Neck Other: No spinous, paraspinous or paravertebral tenderness. 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 Full range of motion of the right arm. Worsening of symptoms across the right chest with abduction and adduction. There is mild tenderness along the right proximal anterior chest. No palpable nodules. Course Course Course Narrative: Chest x-ray reviewed, no acute process. Preliminary findings reviewed with the patient. She feels better after Toradol injection. Patient expresses understanding of all discharge instructions and has no further questions at this time. Medications Administered Discontinued Medications Generic Name Dose Route Start Last Admin Trade Name Freq PRN Reason Stop Dose Admin Ketorolac Tromethamine 30 mg 03/08/25 16:42 03/08/25 16:54 Ketorolac Tromethamine 30 Mg/Ml Vial IM 03/08/25 16:43 30 mg ONCE ONE Administration Medical Decision Making Medical Decision Making MDM Narrative: 34-year-old female with right-sided chest pain after heavy lifting. Possible pectoralis strain but less likely full tear. No ecchymosis or palpable nodules on exam. Check chest x-ray. Differential Diagnosis Differential Diagnoses: The differential diagnosis associated with the presentation includes Pectoralis tear Pectoralis strain Tendonitis Muscle spasm Independent Interpretation I performed an independent interpretation of an: Plain X-Ray (Chest x-ray, no acute process) Discharge Plan Discharge Clinical Impression: Chest wall muscle strain Patient Disposition: Home, Self-Care Instructions: Muscle Strain (ED) Additional Instructions: Rest. Avoid strenuous activity. Naproxen as directed for pain. Take with food. Robaxin as directed pain and muscle spasm. Follow-up with your primary care provider. Call this week to schedule a follow- up appointment. Return to the emergency department if you have any worsening of symptoms, or any concerns. Get well soon! Prescriptions: New methocarbamol 750 mg tablet 750 mg PO TID PRN (Reason: muscle spasm) Qty: 20 0RF naproxen 500 mg tablet 500 mg PO BID PRN (Reason: pain) 7 Days Qty: 14 0RF Rx Instructions: Take with food. Stand Alone Forms: Work/School Release Interventions: ED Discharge Assessment Last Done: 03/08/25 18:00 Discharge Date/Time: 03/08/25 18:01 Print Language: Tajik
--- OUTSIDE RECORDS SUMMARY | 2025-03-08 16:50 | XMS_ITS | Clinical Summary ---
Author Organization [facility] Address [address] [place] [phone] Care Team Providers Care Medical Laboratory Assistant Name Role Phone Haley Crump MD Primary Care Provider [phone] Surgical History Surgery Date Site/Laterality Comments SECTION PROCEDURE: HISTORICAL ; COMMENT: 2 TUBAL LIGATION 2014 PROCEDURE: HISTORICAL TUBAL LIGATION Medical History Medical History Date Comments Secondary amenorrhea 2014 DX:Secondar y amenorrhea; COMMENT: Evaluated in [place] in 02/2015 and was placed on Provera [...] Years) (1 of 2 - PCV) 2008 HPV Vaccines (1 - 3-dose SCD M series) 2016 Cholesterol Screening (Lipid Panel) 05/08/2022 HIV Screening 05/08/2022 Hepatitis C Screening 05/08/2022 Social Influencers of Health Screening 05/08/2022 Cervical Cancer Screening: P ap Smear 01/28/2024 01/27/2021 Depression Screening 06/05/2024 COVID-19 Vaccine (1 - 2023-2 5 season) 2025 Influenza Vaccine (#1) 2025 RSV Immunization Adult Patie nts (1 - 1-dose 75+ series) 2064 HIB Vaccines Aged Out No longer eligi [...] RESULTING AGENCY - 02/09/2021 7:45 AM EDT [id number] THINPREP PAP, IMAGED: NEGATIVE FOR SQUAMOUS INTRAEPITHELIAL [...] UNKNOWN, LMP 01/14/21 [Z12.4, Z01.419] Eva Imani [facility] CYTOLOGY ORDERABLES Final Result HISTORICAL TESTING LAB RESULTING AGENCY from Last 3 Months or Most Recently Relevant to Health Maintenance Care Teams Medical Laboratory Assistant Relationship Specialty Start Date End Date Haley Crump MD [facility] [place] PCP - General Internal Medicine 01/26/21
[2025-03-08 18:00] VITALS: BP 155/70; PULSE 86; RESP 20; TEMP 36.5; O2SAT 100
== END 2025-03-08 18:01 | disposition home or self-care (01) ==
PROVIDERS: Emergency Provider Student in an Organized Health Care Education/Training Program
DX: S29.011A Strain of muscle and tendon of front wall of thorax, initial encounter (principal); X50.0XXA Overexertion from strenuous movement or load, initial encounter; Y93.89 Activity, other specified; Y92.63 Factory as the place of occurrence of the external cause; Y99.8 Other external cause status
CPT/HCPCS: 71046; 96372; 99283; 99284; J1885

== ENCOUNTER → 2025-03-08 16:42 | Outpatient (BNV) | payer OTHER, SELFPAY | PROVIDERS: Emergency Provider Student in an Organized Health Care Education/Training Program; Visit Provider Student in an Organized Health Care Education/Training Program | DX: R07.89 Other chest pain (principal) | CPT/HCPCS: 71046 ==

== ENCOUNTER 2025-05-08 14:03 | Outpatient (REF) | payer OTHER, SELFPAY ==
--- NOTE | 2025-05-08 14:06 | EMG_ITS ---
Chief complaint: Right hand numbness, right shoulder pain Reason for referral: Evaluate for Carpal Tunnel Syndrome Referred by: Kelsey LAMAR Procedure done: Right upper extremity NCS/EMG Precautions and/or limitations: None The limb temperature was monitored continuously and remained between 32-36 degrees C during the performance of the NCS. Nerve Conduction Studies Anti Sensory Summary Table ?Stim Site NR Onset (ms) Norm Onset (ms) Peak (ms) Norm Peak (ms) O-P Amp (?V) Norm O-P Amp Site1 Site2 Delta-0 (ms) Dist (cm) Osman (m/s) Norm Osman (m/s) Right Median Anti Sensory (2nd Digit) Wrist ? 3.0 4.0 <3.6 16.6 >10 Wrist 2nd Digit 3.0 14.0 47 Right Ulnar Anti Sensory (5th Digit) Wrist ? 2.4 3.1 <3.7 25.5 >15.0 Wrist 5th Digit 2.4 14.0 58 Motor Summary Table ?Stim Site NR Onset (ms) Norm Onset (ms) O-P Amp (mV) Norm O-P Amp iAmp (mV) Amp (1st) (%) Site1 Site2 Delta-0 (ms) Dist (cm) Osman (m/s) Norm Osman (m/s) Right Median Motor (Abd Poll Brev) Wrist ? 4.4 <3.9 11.7 >4.5 14.4 100.0 Elbow Wrist 3.2 19.0 59 >45 Elbow ? 7.6 10.4 13.0 88.9 Right Ulnar Motor (Abd Dig Minimi) Wrist ? 2.7 <3.0 13.8 >5 15.6 100.0 B Elbow Wrist 2.7 18.0 67 >45 B Elbow ? 5.4 13.3 15.0 96.4 A Elbow B Elbow 0.9 10.0 111 >45 A Elbow ? 6.3 13.0 14.8 94.2 Comparison Summary Table ?Stim Site NR Peak (ms) Norm Peak (ms) P-T Amp (?V) Site1 Site2 Delta-P (ms) Norm Delta (ms) Right Median/Radial Dig I Comparison (Digit 1 - 10cm) Median ? 1.8 <2.9 26.6 Median Radial 0.5 Radial ? 2.3 <2.8 27.6 EMG ?Side Muscle Nerve Root Ins Act Fibs Psw Amp Dur Poly Recrt Int Pat Comment Right 1stDorInt Ulnar C8-T1 Nml Nml Nml Nml Nml 0 Nml Complete Right FlexCarRad Median C6-7 Nml Nml Nml Nml Nml 0 Nml Complete Right Biceps Musculocut C5-6 Nml Nml Nml Nml Nml 0 Nml Complete Right Triceps Radial C6-7-8 Nml Nml Nml Nml Nml 0 Nml Complete Right Deltoid Axillary C5-6 Nml Nml Nml Nml Nml 0 Nml Complete FINDINGS: Right median motor nerve showed prolonged distal latency, normal amplitude and normal conduction velocity. Right median sensory nerve showed prolonged peak latency. All other nerves tested were within normal. Concentric needle EMG was performed in selected muscles of the right upper extremity. Study did not reveal signs of electric abnormalities as shown in the table above. IMPRESSION: 1. This is an abnormal study. 2. There is electrodiagnostic evidence for right moderate-severe median neuropathy at the wrist, consistent with carpal tunnel syndrome. 3. There is no electrodiagnostic evidence for ulnar neuropathy, brachial plexopathy, or cervical radiculopathy. Thank you for your kind referral. Yadira Peña MD, OMAR Board Certified, [place] [employer] and Rehabilitation (ABPMR) Board Certified, [place] Board of Electrodiagnostic Medicine (ABEM) CODIN 04365 x 1 extremity MTDD
== END 2025-05-08 14:04 | disposition home or self-care (01) ==
LOC: HO.NEURO 14:03
PROVIDERS: Visit Provider Physician Assistant
DX: R20.0 Anesthesia of skin (principal); R20.2 Paresthesia of skin; M25.511 Pain in right shoulder
CPT/HCPCS: 95886; 95909

== ENCOUNTER → 2025-05-08 14:06 | Outpatient (BNV) | payer OTHER, SELFPAY | PROVIDERS: Visit Provider Physical Medicine & Rehabilitation | DX: G56.01 Carpal tunnel syndrome, right upper limb (principal) | CPT/HCPCS: 95886; 95909 ==